=== PATIENT | male | born 1960 | race Caucasian/White ===

== ENCOUNTER 2019-11-23 22:08 | Emergency (ER) | payer BC ==
--- NOTE | 2019-11-23 23:05 | RAD ---
XR Knee Lt 4 View STANDARD History: Pain. Fall Comparison: None. Findings: High-grade medial and lateral compartment degenerative changes. Large central osteophytes o f the left lateral femoral condyle. No acute displaced fracture or malalignment. Moderate joint effusion. High-grade patellofemoral compartment degenerative change. Impression: Moderate joint effusion with high-grade tricompartmental degenerative change. No acute di splaced fracture is appreciated.
--- NOTE | 2019-11-23 23:06 | RAD ---
XR Chest 1 View Portable History: Covid positive Comparison: None. Findings: Lungs are clear. No pneumothorax. No effusion. Heart size mildly enlarged. No acute osseous abnormality. Impression: No acute intrathoracic abnormality.
[2019-11-23 23:13] LABS: #Lymphocytes 0.9 thou/uL (1.20-3.40); #Monocytes 0.5 thou/uL (0.11-0.59); #Neutrophils 3.1 thou/uL (1.40-6.50); %Basophils 0.8 % (0.0-1.0); %Eosinophils 0.6 % (0.0-10.0); %Lymphocytes 18.8 % (21.0-51.0); %Monocytes 11.4 % (0.0-10.0); %Neutrophils 68.5 % (42.0-75.0); Hemoglobin 14.1 g/dL (14.0-18.0); Mean Corpuscular HGB CONC 34.8 g/dL (32.0-36.0); Mean Corpuscular Hemoglobin 30.9 pg (27.0-31.0); Mean Corpuscular Volume 88.8 fL (78.0-98.0); Platelet Count 135 thou/uL (130-400); RBC Distribution Width 11.8 % (11.5-14.5); Red Blood Cell (RBC) Count 4.57 mill/uL (4.70-6.10); White Blood Cell (WBC) Count 4.5 thou/uL (4.8-10.8)
[2019-11-23] MEDS ORDERED: Lidocaine 1% w/Epinephrine 1:100K 20 ML VIAL ONE (23:27)
[2019-11-23 23:54] LABS: ALT (SGPT) 18 U/L (8-55); AST (SGOT) 24 U/L (5-34); Albumin 3.8 g/dL (3.5-5.0); Alkaline Phosphatase 76 U/L (40-110); Anion Gap 14 mmol/L (10-20); BUN (Urea Nitrogen) 20 mg/dL (8.4-25.7); Bilirubin, Total 0.4 mg/dL (0.2-1.2); Calc. Creatinine Clearance 0 mL/min (70-130); Calcium 8.4 mg/dL (7.8-10.44); Carbon Dioxide 19 mmol/L (22-29); Chloride 109 mmol/L (98-107); Estimated GFR-MDRD 71; Glucose 107 mg/dL (70-105); Potassium 3.7 mmol/L (3.5-5.1); Protein, Total 6.8 g/dL (6.0-8.3); Sodium 138 mmol/L (136-145)
[2019-11-24 01:33] LABS: RBC Count-Automated (BF) 411802 /cu.mm; WBC/Nucleated-Auto (BF) 11810 uL
[2019-11-24 01:36] LABS: Body Fluid Source Synovial Fluid
[2019-11-24 01:37] LABS: BF Color Red; Clarity Cloudy/Turbid (Clear); Tube # RED TUBE
[2019-11-24 02:52] LABS: BF Segmented Neutrophils 55 %; Cell Count Non Hematic 43 %; Lymphocytes 2 %
== END 2019-11-24 02:05 | disposition home or self-care (01) ==
LOC: ERS 22:08
DX: S83.422A Sprain of lateral collateral ligament of left knee, initial encounter (principal); M25.462 Effusion, left knee; W18.30XA Fall on same level, unspecified, initial encounter
CPT/HCPCS: 20610; 36415; 71045; 80053; 82945; 83605; 85025; 85060; 85652; 86140; 87040; 87070; 87205; 89051; 89060